=== PATIENT | female | born 1985 | race Two or more races ===

== ENCOUNTER 2016-06-24 17:32 | Emergency (ER) | payer MEDICAID | END 2016-06-24 18:30 | disposition left against medical advice (07) | LOC: ER 17:32 | DX: Z53.9 Procedure and treatment not carried out, unspecified reason (principal); R11.10 Vomiting, unspecified; R19.7 Diarrhea, unspecified; R10.9 Unspecified abdominal pain ==

== ENCOUNTER 2018-06-25 21:16 | Emergency (ER) | payer MEDICAID | END 2018-06-25 21:31 | disposition left against medical advice (07) | LOC: ER 21:16 | DX: Z53.21 Procedure and treatment not carried out due to patient leaving prior to being seen by health care provider (principal) ==

== ENCOUNTER 2019-02-17 08:46 | Emergency (ER) | payer SELFPAY ==
--- NOTE | 2019-02-17 09:36 | ER Document Report ---
ED General - General Chief Complaint: Post Surgical Pain Stated Complaint: POST OP PROBLEM Time Seen by Provider: 02/17/19 09:00 Primary Care Provider: [facility] [Provider Group] - Follow up as needed NEHA HERRING MD [ACTIVE STAFF] - Follow up as needed PHOEBE SHETH MD [Primary Care Provider] - Follow up as needed Notes: Patient is a 34-year-old female presents to the emergency department with a chief complaint of postop complication. Patient reports 35 days ago she had a tummy tuck in [place]. Patient reports she did have drains placed which were removed 10 days postop. Patient reports that she has visited her doctor in [place] multiple times to have blood removed from underneath her surgical incision. Patient reports last time this occurred was Wednesday. Patient reports she flew back to the [place] on Wednesday. Patient reports she did start taking Cefixime 300 mg PO daily last Wednesday. Patient denies fever. Patient reports she feels like her lower abdominal area is swelling again and that she needs to have the blood removed. Patient denies nausea, vomiting or diarrhea. Patient reports her last bowel movement was today and normal. Patient denies pain. TRAVEL OUTSIDE OF THE [place] IN LAST 30 DAYS: Yes COUNTRY TRAVELED TO/FROM: [place] - Related Data Allergies/Adverse Reactions: No Known Allergies Allergy (Verified 09/28/15 17:29) Past Medical History - General Information source: Patient - Social History Smoking Status: Never Smoker Chew tobacco use (# tins/day): No Frequency of alcohol use: None Drug Abuse: None Lives with: Family Family History: Reviewed & Not Pertinent Patient has suicidal ideation: No Patient has homicidal ideation: No - Past Medical History Cardiac Medical History: Reports: None Denies: Hx Coronary Artery Disease, Hx Heart Attack, Hx Hypertension Pulmonary Medical History: Reports: None Denies: Hx Asthma, Hx Bronchitis, Hx COPD, Hx Pneumonia EENT Medical History: Reports: None Neurological Medical History: Reports: None. Denies: Hx Cerebrovascular Accident, Hx Seizures Endocrine Medical History: Reports: None Renal/ Medical History: Reports: None. Denies: Hx Peritoneal Dialysis Malignancy Medical History: Reports: None GI Medical History: Reports: None Musculoskeletal Medical History: Reports None, Denies Hx Arthritis Skin Medical History: Reports None Psychiatric Medical History: Reports: None Traumatic Medical History: Reports: None Infectious Medical History: Reports: None Past Surgical History: Reports: Hx Section - x 3, Hx Cholecystectomy, Hx Tonsillectomy, Other - "Tummy Tuck" 2019 - Immunizations Immunizations up to date: Yes Hx Diphtheria, Pertussis, Tetanus Vaccination: Yes Hx Pneumococcal Vaccination: 05/24/11 Review of Systems - Review of Systems Constitutional: No symptoms reported EENT: No symptoms reported Cardiovascular: No symptoms reported Respiratory: No symptoms reported Gastrointestinal: See HPI Genitourinary: No symptoms reported Female Genitourinary: No symptoms reported Musculoskeletal: No symptoms reported Skin: No symptoms reported Hematologic/Lymphatic: No symptoms reported Neurological/Psychological: No symptoms reported Physical Exam - Vital signs Vitals: Temp Pulse Resp BP Pulse Ox 98.0 F 73 18 122/67 97 02/17/19 08:50 02/17/19 08:50 02/17/19 08:50 02/17/19 08:50 02/17/19 08:50 Interpretation: Normal - Notes Notes: GENERAL: Well-appearing, well-nourished and in no acute distress. HEAD: Atraumatic, normocephalic. EYES: Pupils equal round and reactive to light, extraocular movements intact, sclera anicteric, conjunctiva are normal. ENT: Nares patent, oropharynx clear without exudates. Moist mucous membranes. NECK: Normal range of motion, supple without lymphadenopathy or JVD. LUNGS: Breath sounds clear to auscultation bilaterally and equal. No wheezes rales or rhonchi. HEART: Regular rate and rhythm without murmurs, rubs or gallops. ABDOMEN: Obese, healing surgical scar noted to lower abdomen which is linear in nature - no dehiscence, normoactive bowel sounds. No guarding, no rebound. No masses appreciated. Lower abdomen is firm to touch, there is no fluctuance, no surrounding cellulitis and no drainage. BACK: No cervical, thoracic, lumbar midline tenderness. No saddle anesthesia, normal distal neurovascular exam. GENITOURINARY: Deferred. EXTREMITIES: Normal range of motion, no pitting or edema. No clubbing or cyanosis. NEUROLOGICAL: Cranial nerves II through XII grossly intact. Normal speech, normal gait. PSYCH: Normal mood, normal affect. SKIN: Warm, Dry, normal turgor, no rashes or lesions noted. Course - Re-evaluation Re-evalutation: 02/17/19 09:36 Obtain basic labs as well as a CT of the abdomen with IV contrast to evaluate possible hematoma or seroma underneath the surgical scar. I did explain this to the patient who is in agreement of this plan. Patient is not tachycardic, hypotensive, febrile at this time. 02/17/19 11:23 I did discuss the lab results as well as the CT results with the patient. I did inform her I would like to consult surgery regarding the possible seroma or hematoma underneath the surgical site. Patient denies pain and is requesting something to eat. Patient's abdomen remains unremarkable as there is no guarding, tenderness with palpation, erythema or edema. I did speak with Dr. Keene who is our on-call surgical is to we will come to the emergency department for patient evaluation. 02/17/19 13:00 Dr. Keene at the bedside. The Nepali [employer] aluminum can collector was used for interpretation. He does recommend that the patient follow-up with plastic surgery, such as a Dr. Herring. Patient reports her primary care physician is the [facility] as she does not have health insurance. I will place a referral for case management to see if they are able to help assist the patient for follow up. Dr. Keene did speak with the radiologist who agrees to perform a percutaneous drainage of the wound under ultrasound. I did speak with the patient regarding this and she agrees and is happy that we are able to help her today. I did inform the patient she still needs strict follow-up as she may require additional drainage. Patient verbalizes understanding. I did also inform the patient that she has a large 7 cm cyst near the left adnexa. Patient states she was told that by her doctor and [place] that she does have a large cyst and that she is aware of this. I did inform the patient that if she were to develop pain or worsening symptoms she would need to return immediately as this can cause serious and potentially life threatening issues. I did inform her that a repeat ultrasound within the next 6 to 8 weeks as recommended by the radiologist. 02/17/19 14:57 Patient has returned from ultrasound. Patient reports feeling much better and currently not having abdominal pain. Patient's abdomen is soft and nontender. I did inform the patient to follow-up with [facility] as she does need follow-up for her surgery. Patient was given strict return precautions. Also re-iterated to the patient to follow-up in regards to her cyst. Luther with case management has been contacted by nursing staff to potentially assist patient with plastic surgery follow-up. 02/17/19 15:26 I did speak with Luther the shoe caser who will follow up with the patient on Wednesday and make her a follow-up appointment at [facility]. Patient is aware that she will be contacted. - Vital Signs Vital signs: Temp Pulse Resp BP Pulse Ox 98.0 F 73 14 107/65 100 02/17/19 08:50 02/17/19 08:50 02/17/19 15:16 02/17/19 15:16 02/17/19 15:16 - Laboratory Result Diagrams: 02/17/19 09:35 02/17/19 09:35 Laboratory results interpreted by me: 02/17/19 02/17/19 09:35 10:00 Hgb 11.3 L Hct 35.4 L MCH 25.3 L MCHC 31.8 L RDW 16.8 H Urine Blood MODERATE H - Diagnostic Test Radiology reviewed: Reports reviewed Radiology results interpreted by me: 02/17/19 11:22 Abdomen/Pelvis CT 02/17/19 09:31 IMPRESSION: 1. There are postoperative findings about the lower abdomen in keeping with reported recent abdominoplasty. There is a U shaped subcutaneous fluid collection superficial to the abdominal wall musculature measuring at least 24.0 by 8.7 x 3.7 cm (series 3, image 58, series 602, image 37). This may reflect hematoma or seroma depending upon recency of surgery. The presence or absence of infection cannot be evaluated in this circumstance. This collection may be aspirated under ultrasound if desired. 2. There is a 7.1 cm cyst of the left adnexa. This is likely benign and functional in reproductive age setting, however given size recommend follow-up ultrasound in 6 to 8 weeks. This large cyst may be symptomatic and may serve as a nidus of torsion, and immediate ultrasound may be appropriate depending upon the presence of referral symptoms. Discharge - Discharge Clinical Impression: Post-operative complication Qualifiers: Surgical complication system/body Area: skin Surgical complication type: unspecified Procedure type: dermatologic Qualified Code(s): L76.82 - Other postprocedural complications of skin and subcutaneous tissue Condition: Stable Disposition: HOME, SELF-CARE Additional Instructions: Today you are seen in the emergency department for a possible collection of blood or fluid underneath the skin around the surgical site. We did obtain a cat scan which did verify a collection of fluid. Due to your unremarkable lab findings -and normal vital signs there does not appear to be an acute infection at this time. Please continue your oral antibiotics as previously discussed with Dr. Keene (our surgeon) as prescribed by your surgeon in [place]. You are surgical site was drained by our radiologist. You do need to have a follow-up with [facility] as you may require further management of your abdominal surgery. If you develop any new or worsening symptoms to include severe abdominal pain, redness around her surgical site, drainage around her surgical site, fever, swelling to the abdomen please return to the emergency department immediately. It was also noted on your CAT scan that you had a large 7.1 cm cyst on the left side. The radiologist did recommend follow-up with an STACK SUPERVISOR within the next 6 to 8 weeks to have this reevaluated as it is quite large. Referrals: PHOEBE SHETH MD [Primary Care Provider] - Follow up as needed NEHA HERRING MD [ACTIVE STAFF] - Follow up as needed [facility] [Provider Group] - Follow up as needed
[2019-02-17 10:01] LABS: ABSOLUTE EOSINOPHILS # (AUTO) 0.1 10^3/uL (0.0-0.6); ABSOLUTE LYMPHOCYTES (AUTO) 1.9 10^3/uL (0.5-4.7); ABSOLUTE MONOCYTES (AUTO) 0.4 10^3/uL (0.1-1.4); ABSOLUTE NEUT (AUTO) 3.6 10^3/uL (1.7-8.2); BASOPHILS % (AUTO) 0.3 % (0-2); EOSINOPHILS % (AUTO) 2.4 % (0-6); HEMATOCRIT 35.4 % (36.0-47.0); HEMOGLOBIN 11.3 g/dL (12.0-15.5); LYMPHOCYTES % (AUTO) 31.6 % (13-45); MEAN CORPUSCULAR HEMOGLOBIN 25.3 pg (27.0-33.4); MEAN CORPUSCULAR HGB CONC 31.8 g/dL (32.0-36.0); MEAN CORPUSCULAR VOLUME 80 fl (80-97); MONOCYTES % (AUTO) 7.2 % (3-13); PLATELET COUNT 259 10^3/uL (150-450); RED BLOOD COUNT 4.45 10^6/uL (3.72-5.28); RED CELL DISTRIBUTION WIDTH 16.8 % (11.5-14.0); SEGMENTED NEUTROPHILS % (AUTO) 58.5 % (42-78); TOTAL CELLS COUNTED % (AUTO) 100 %; WHITE BLOOD COUNT 6.1 10^3/uL (4.0-10.5)
[2019-02-17 10:23] LABS: APPEARANCE,URINE CLEAR; BILIRUBIN,URINE NEGATIVE (NEGATIVE); COLOR,URINE YELLOW; GLUCOSE, URINE NEGATIVE (NEGATIVE); KETONES,URINE NEGATIVE (NEGATIVE); LEUKOCYTE ESTERASE,URINE NEGATIVE (NEGATIVE); NITRITE,URINE NEGATIVE (NEGATIVE); PROTEIN,URINE NEGATIVE (NEGATIVE); URINE SPECIFIC GRAVITY 1.013; UROBILINOGEN,URINE NEGATIVE mg/dL (<2.0)
--- NOTE | 2019-02-17 11:05 | RADIOLOGY REPORT (SQ) ---
EXAM DESCRIPTION: CT ABD/PELVIS WITH IV ONLY COMPLETED DATE/TIME: 02/17/2019 10:42 am REASON FOR STUDY: post op lower abdominal swelling/tenderness Recent tummy tuck COMPARISON: 08/06/2014 TECHNIQUE: CT scan of the abdomen and pelvis performed using helical scanning technique with dynamic intravenous contrast injection. No oral contrast. Images reviewed with lung, soft tissue, and bone windows. Reconstructed coronal and sagittal MPR images reviewed. Delayed images for evaluation of the urinary system also acquired. All images stored on PACS. All CT scanners at this facility use dose modulation, iterative reconstruction, and/or weight based d osing when appropriate to reduce radiation dose to as low as reasonably achievable (ALARA). [facility]: Dose Right [facility]: CareDose [facility]: Dose Right [facility]: Teradose 4D [facility]: Guess Your Songs CONTRAST TYPE AND DOSE: contrast/concentration: Isovue 350.00 mg/ml; Total Contrast Delivered: 100.0 ml; Total Saline Delivered: 60.1 ml RENAL FUNCTION: None required. The patient is less than 50 years old. RADIATION DOSE: CT Rad equipment meets quality standard of care and radiation dose reduction techniq ues were employed. CTDIvol: 15.6 - 19.2 mGy. DLP: 1801 mGy-cm.. LIMITATIONS: None. FINDINGS: LOWER CHEST: No significant findings. No nodules or infiltrates. LIVER: Normal size. No masses. No dilated ducts. SPLEEN: Normal size. No focal lesions. PANCREAS: No masses. No significant calcifications. No adjacent inflammation or peripancreatic fluid collections. Pancreatic duct not dilated. GALLBLADDER: Surgically absent. ADRENAL GLANDS: No significant masses or asymmetry. RIGHT KIDNEY AND URETER: No solid masses. No significant calcifications. No hydronephrosis or hyd roureter. LEFT KIDNEY AND URETER: No solid masses. No significant calcifications. No hydronephrosis or hydr oureter. AORTA AND VESSELS: No aneurysm. No dissection. Renal arteries, SMA, celiac without stenosis. RETROPERITONEUM: No retroperitoneal adenopathy, hemorrhage or masses. BOWEL AND PERITONEAL CAVITY: No masses or inflammatory changes. No free fluid or peritoneal masses. APPENDIX: Normal. PELVIS: There is a 7.1 cm cyst of the left adnexa. No free fluid. Normal bladder. ABDOMINAL WALL: There are postoperative findings about the lower abdomen in keeping with reported rec ent abdominoplasty. There is a U shaped subcutaneous fluid collection superficial to the abdominal w all musculature measuring at least 24.0 by 8.7 x 3.7 cm (series 3, image 58, series 602, image 37). BONES: No significant or acute findings. OTHER: No other significant finding. IMPRESSION: 1. There are postoperative findings about the lower abdomen in keeping with reported rec ent abdominoplasty. There is a U shaped subcutaneous fluid collection superficial to the abdominal w all musculature measuring at least 24.0 by 8.7 x 3.7 cm (series 3, image 58, series 602, image 37). This may reflect hematoma or seroma depending upon recency of surgery. The presence or absence of in fection cannot be evaluated in this circumstance. This collection may be aspirated under ultrasound if desired. 2. There is a 7.1 cm cyst of the left adnexa. This is likely benign and functional in reproductive a ge setting, however given size recommend follow-up ultrasound in 6 to 8 weeks. This large cyst may b e symptomatic and may serve as a nidus of torsion, and immediate ultrasound may be appropriate depend ing upon the presence of referral symptoms. TECHNICAL DOCUMENTATION: JOB ID: [id number] Quality ID # [id number]: Final reports with documentation of one or more dose reduction techniques (e.g., Au tomated exposure control, adjustment of the mA and/or kV according to patient size, use of iterative reconstruction technique) 2010 [employer]- All Rights Reserved Reading location - IP/workstation name: [email or web address]
[2019-02-17 11:09] LABS: ALBUMIN 4.2 g/dL (3.5-5.0); ALKALINE PHOSPHATASE 61 U/L (38-126); ANION GAP 9 (5-19); ASPARTATE AMINO TRANSFERASE 21 U/L (14-36); BILIRUBIN,DIRECT 0.1 mg/dL (0.0-0.4); BILIRUBIN,TOTAL 0.4 mg/dL (0.2-1.3); BLOOD UREA NITROGEN 7 mg/dL (7-20); CALCIUM 9.4 mg/dL (8.4-10.2); CARBON DIOXIDE 25 mmol/L (22-30); CHLORIDE 105 mmol/L (98-107); GLUCOSE 95 mg/dL (75-110); POTASSIUM 4.3 mmol/L (3.6-5.0); TOTAL PROTEIN 7.3 g/dL (6.3-8.2)
--- NOTE | 2019-02-17 13:15 | PDOC CONSULTATION ---
Consultation Consult Date: 02/17/19 Provider Consulted: ADITI ESCOTO Consult reason:: Postoperative collection in the subcutaneous area of blood/seroma after tummy tuck surgery History of Present Illness Admission Date/PCP: PHOEBE SHETH MD History of Present Illness: HORACIO BURCIAGA is a 34 year old female who underwent tummy tuck surgery about 36 days ago in [place]. Patient developed postoperative hematoma and was aspirated percutaneously about 5 times about 20 days after his surgery. She was given a prescription for antibiotic after apparently the last aspiration and told her to go to any doctor in the [place] to aspirate and hematoma. She denies any fever or chills or any significant pains. Past Medical History Cardiac Medical History: Reports: None Denies: Coronary Artery Disease, Myocardial Infarction, Hypertension Pulmonary Medical History: Reports: None Denies: Asthma, Bronchitis, Chronic Obstructive Pulmonary Disease (COPD), Pneumonia EENT Medical History: Reports: None Neurological Medical History: Reports: None Denies: Seizures Endocrine Medical History: Reports: None Renal/ Medical History: Reports: None Malignancy Medical History: Reports: None GI Medical History: Reports: None Musculoskeltal Medical History: Reports: None Denies: Arthritis Skin Medical History: Reports: None Psychiatric Medical History: Reports: None Traumatic Medical History: Reports: None Hematology: Denies: Anemia Infectious Medical History: Reports: None Past Surgical History Past Surgical History: Reports: Section - x 3, Cholecystectomy, Tonsillectomy, Other - "Tummy Tuck" 2019 Social History Lives with: Family Smoking Status: Never Smoker Family History Family History: Reviewed & Not Pertinent Parental Family History Reviewed: Yes Children Family History Reviewed: No Sibling(s) Family History Reviewed.: No Medication/Allergy Home Medications: Acyclovir [Acyclovir 400 mg Tablet] 400 mg PO 5XD #25 tablet 01/21/15 Nitrofurantoin/Nitrofuran Mac [Macrobid 100 mg Capsule] 100 mg PO BID #10 capsule 05/08/15 Vit/Iron Fum/Folic AC [ Tablet] 1 each PO DAILY #90 tablet 05/26/15 Ondansetron [Zofran Odt 4 mg Tablet] 1 - 2 tab PO Q4H #30 tab.rapdis 09/28/15 Allergies/Adverse Reactions: No Known Allergies Allergy (Verified 09/28/15 17:29) Review of Systems Constitutional: PRESENT: as per HPI Gastrointestinal: PRESENT: other - Has some swelling that is firm just underneath the tummy tuck incision in the mid part of the abdomen. There is no obvious area that can be drained percutaneously without help of the ultrasound Physical Exam Vital Signs: Temp Pulse Resp BP Pulse Ox 98.0 F 73 18 122/67 97 02/17/19 08:50 02/17/19 08:50 02/17/19 08:50 02/17/19 08:50 02/17/19 08:50 Intake & Output 02/16/19 02/17/19 02/18/19 06:59 06:59 06:59 Weight 97.2 kg General appearance: PRESENT: no acute distress Exam: The abdomen showed a fair nontender swelling below the tummy tuck incision close to the midline. This was not tender and there is no obvious suggestion for any infection Results Laboratory Results: 02/17/19 09:35 02/17/19 09:35 02/17/19 02/17/19 02/17/19 09:35 09:35 09:35 WBC 6.1 RBC 4.45 Hgb 11.3 L Hct 35.4 L MCV 80 MCH 25.3 L MCHC 31.8 L RDW 16.8 H Plt Count 259 Seg Neutrophils % 58.5 Sodium 138.8 Potassium 4.3 Chloride 105 Carbon Dioxide 25 Anion Gap 9 BUN 7 Creatinine 0.54 Est GFR ( Amer) > 60 Glucose 95 Calcium 9.4 Total Bilirubin 0.4 AST 21 Alkaline Phosphatase 61 Total Protein 7.3 Albumin 4.2 Serum HCG, Qual NEGATIVE Urine Color Urine Appearance Urine pH Ur Specific [place] Urine Protein Urine Glucose (UA) Urine Ketones Urine Blood Urine Nitrite Ur Leukocyte Esterase Urine WBC (Auto) Urine RBC (Auto) 02/17/19 10:00 WBC RBC Hgb Hct MCV MCH MCHC RDW Plt Count Seg Neutrophils % Sodium Potassium Chloride Carbon Dioxide Anion Gap BUN Creatinine Est GFR ( Amer) Glucose Calcium Total Bilirubin AST Alkaline Phosphatase Total Protein Albumin Serum HCG, Qual Urine Color YELLOW Urine Appearance CLEAR Urine pH 5.0 Ur Specific [place] 1.013 Urine Protein NEGATIVE Urine Glucose (UA) NEGATIVE Urine Ketones NEGATIVE Urine Blood MODERATE H Urine Nitrite NEGATIVE Ur Leukocyte Esterase NEGATIVE Urine WBC (Auto) 1 Urine RBC (Auto) 1 Impressions: Abdomen/Pelvis CT 02/17/19 09:31 IMPRESSION: 1. There are postoperative findings about the lower abdomen in keeping with reported recent abdominoplasty. There is a U shaped subcutaneous fluid collection superficial to the abdominal wall musculature measuring at least 24.0 by 8.7 x 3.7 cm (series 3, image 58, series 602, image 37). This may reflect hematoma or seroma depending upon recency of surgery. The presence or absence of infection cannot be evaluated in this circumstance. This collection may be aspirated under ultrasound if desired. 2. There is a 7.1 cm cyst of the left adnexa. This is likely benign and functional in reproductive age setting, however given size recommend follow-up ultrasound in 6 to 8 weeks. This large cyst may be symptomatic and may serve as a nidus of torsion, and immediate ultrasound may be appropriate depending upon the presence of referral symptoms. Assessment & Plan - Diagnosis (1) hematoma/seroma post op Is this a current diagnosis for this admission?: Yes (2) Post-operative complication Qualifiers: Surgical complication system/body Area: skin Surgical complication type: unspecified Procedure type: dermatologic Qualified Code(s): L76.82 - Other postprocedural complications of skin and subcutaneous tissue Is this a current diagnosis for this admission?: Yes - Time Time Spent: 30 to 50 Minutes - Plan Summary Plan Summary: CT scan showed collection either hematoma versus seroma on the subcutaneous area in the pelvic site. I have talked to radiologist about aspirating this percutaneously under ultrasound guidance. Just called the ER doctor to send a request for consultation with the radiologist for drainage and also send the drainage for culture. This decision was made after initially talking to the patient and referring her to a plastic surgeon. She might still will need to be seen seen by a plastic surgeon for further follow-up.
--- NOTE | 2019-02-17 15:26 | RADIOLOGY REPORT (SQ) ---
EXAM DESCRIPTION: U/S DRAINAGE RETRO/PERITONEAL COMPLETED DATE/TIME: 02/17/2019 3:06 pm REASON FOR STUDY: collection of fluid underneath surgical site COMPARISON: CT abdomen and pelvis 02/17/2019 TECHNIQUE: Ultrasound-guided right lower quadrant and left lower quadrant anterior abdominal wall fl uid collection aspirations under ultrasound guidance. Specimens were sent to the lab for culture. LIMITATIONS: None. FINDINGS: Prior CT was reviewed. Informed consent was obtained from the patient. After preliminary ultrasound scanning over the tummy tuck incision, and localization of the right low er quadrant and left lower quadrant anterior abdominal wall fluid collections ventral to the rectus m uscle sheath seen on CT exam 02/17/2019, skin entry sites were marked on [facility] skin for drainage of of t hese fluid collections. After sterile skin prep with ChloraPrep and local lidocaine for skin and soft tissue anesthesia, a 5 [place] Accustick catheter was placed into the left lower quadrant anterior abdominal wall fluid colle ction. 150 mL of liquified hematoma was aspirated. Sample was sent to the lab for culture. After a spiration, ultrasound over the area demonstrated no residual fluid collection. The catheter was yovany annette. Band-Aid placed on the skin. After sterile skin prep with ChloraPrep and local lidocaine for skin and soft tissue anesthesia, a 5 [place] Accustick catheter was placed into the right lower quadrant anterior abdominal wall fluid bryson ection. 50 mL of liquified hematoma was aspirated. After aspiration, ultrasound over the area demon strated no residual fluid collection. The catheter was removed. Band-Aid placed on the skin. There were no postprocedure complications. Findings discussed with Dr. Keene. IMPRESSION: Ultrasound-guided aspiration of liquified hematomas along the anterior abdominal wall tu mmy tuck. Specimen sent to the lab for culture. Culture is pending. No immediate complications pos t procedure. TECHNICAL DOCUMENTATION: JOB ID: [id number] [employer]- All Rights Reserved Reading location - IP/workstation name: [email or web address]
[2019-02-17 15:34] VITALS: BP 112/67
== END 2019-02-17 15:30 | disposition home or self-care (01) ==
LOC: ER 08:46
DX: L76.82 Other postprocedural complications of skin and subcutaneous tissue (principal); G89.18 Other acute postprocedural pain; R10.30 Lower abdominal pain, unspecified; N94.89 Other specified conditions associated with female genital organs and menstrual cycle; Z90.49 Acquired absence of other specified parts of digestive tract
CPT/HCPCS: 36415; 49406; 74177; 80053; 81001; 84703; 85025; 87070; 87075; 87205; 99284

== ENCOUNTER 2019-04-13 08:47 | Emergency (ER) | payer MEDICAID ==
--- NOTE | 2019-04-13 09:24 | ER Document Report ---
ED Medical Screen (RME) - General Chief Complaint: Abdominal Pain Stated Complaint: ABDOMINAL PAIN Time Seen by Provider: 04/13/19 09:20 Primary Care Provider: PHOEBE SHETH MD [Primary Care Provider] - Follow up as needed TRAVEL OUTSIDE OF THE [place] IN LAST 30 DAYS: No COUNTRY TRAVELED TO/FROM: [place] - [facility] Notes: 04/13/19 09:27 34 year old female to the ED with C/O lower abdominal pain to [facility]. She had this done 3 months ago in [place]. She states she has had pain in the area since the surgery and in January she had a hematoma drained. States that she has been seen at [facility] and when her pain returned this month, they sent her for an US. US from [facility] shows seroma that is 1 [id number] cm. She denies fevers, chills, NVD. She last ate last night. I performed a brief medical screening exam on this patient. I have placed initial lab orders to help expedite her care. Will have her further evaluated and managed my mainside provider. - Related Data Allergies/Adverse Reactions: No Known Allergies Allergy (Verified 04/13/19 09:05) Past Medical History - Social History Chew tobacco use (# tins/day): No Frequency of alcohol use: None Drug Abuse: None - Past Medical History Cardiac Medical History: Denies: Hx Coronary Artery Disease, Hx Heart Attack, Hx Hypertension Pulmonary Medical History: Denies: Hx Asthma, Hx Bronchitis, Hx COPD, Hx Pneumonia Neurological Medical History: Denies: Hx Cerebrovascular Accident, Hx Seizures Renal/ Medical History: Denies: Hx Peritoneal Dialysis Musculoskeltal Medical History: Denies Hx Arthritis Past Surgical History: Reports: Hx Section - x 3, Hx Cholecystectomy, Hx Tonsillectomy, Other - "[facility]" 2019 - Immunizations Immunizations up to date: Yes Hx Diphtheria, Pertussis, Tetanus Vaccination: Yes Physical Exam - Vital signs Vitals: Temp Pulse Resp BP Pulse Ox 98.2 F 67 16 117/71 96 04/13/19 08:53 04/13/19 08:53 04/13/19 08:53 04/13/19 08:53 04/13/19 08:53 Course - Vital Signs Vital signs: Temp Pulse Resp BP Pulse Ox 98.2 F 67 16 117/71 96 04/13/19 08:53 04/13/19 08:53 04/13/19 08:53 04/13/19 08:53 04/13/19 08:53 Doctor's Discharge - Discharge Referrals: PHOEBE SHETH MD [Primary Care Provider] - Follow up as needed
[2019-04-13 10:15] LABS: ABSOLUTE EOSINOPHILS # (AUTO) 0.1 10^3/uL (0.0-0.6); ABSOLUTE LYMPHOCYTES (AUTO) 1.9 10^3/uL (0.5-4.7); ABSOLUTE MONOCYTES (AUTO) 0.3 10^3/uL (0.1-1.4); ABSOLUTE NEUT (AUTO) 4.1 10^3/uL (1.7-8.2); BASOPHILS % (AUTO) 0.2 % (0-2); EOSINOPHILS % (AUTO) 1.2 % (0-6); HEMATOCRIT 40.4 % (36.0-47.0); LYMPHOCYTES % (AUTO) 29.9 % (13-45); MEAN CORPUSCULAR HEMOGLOBIN 24.9 pg (27.0-33.4); MEAN CORPUSCULAR HGB CONC 32.3 g/dL (32.0-36.0); MEAN CORPUSCULAR VOLUME 77 fl (80-97); MONOCYTES % (AUTO) 5.2 % (3-13); PLATELET COUNT 255 10^3/uL (150-450); RED BLOOD COUNT 5.25 10^6/uL (3.72-5.28); RED CELL DISTRIBUTION WIDTH 16.7 % (11.5-14.0); SEGMENTED NEUTROPHILS % (AUTO) 63.5 % (42-78); TOTAL CELLS COUNTED % (AUTO) 100 %; WHITE BLOOD COUNT 6.5 10^3/uL (4.0-10.5)
[2019-04-13 10:35] LABS: ALBUMIN 4.5 g/dL (3.5-5.0); ALKALINE PHOSPHATASE 65 U/L (38-126); ANION GAP 13 (5-19); ASPARTATE AMINO TRANSFERASE 20 U/L (14-36); BILIRUBIN,DIRECT 0.1 mg/dL (0.0-0.4); BILIRUBIN,TOTAL 0.4 mg/dL (0.2-1.3); BLOOD UREA NITROGEN 11 mg/dL (7-20); CALCIUM 9.7 mg/dL (8.4-10.2); CARBON DIOXIDE 21 mmol/L (22-30); CHLORIDE 109 mmol/L (98-107); GLUCOSE 108 mg/dL (75-110); POTASSIUM 4.1 mmol/L (3.6-5.0)
--- NOTE | 2019-04-13 11:38 | ER Document Report ---
ED General - General Chief Complaint: Abdominal Pain Stated Complaint: ABDOMINAL PAIN Time Seen by Provider: 04/13/19 09:20 Primary Care Provider: JENS GASPAR MD [ACTIVE STAFF] - 04/18/19 NEHA LEON MD [ACTIVE STAFF] - Follow up as needed PHOEBE SHETH MD [Primary Care Provider] - Follow up as needed Mode of Arrival: Ambulatory Information source: Patient Notes: 34-year-old female presents after her primary care physician sent her for an ultrasound which showed a seroma anterior to the rectus abdominis. Patient has had prior similar symptoms and underwent a drainage in January [address] Mata. Patient reports that she has had some mild aching pain but denies any fever, chills, nausea, vomiting. She does have an appointment with Dr. Gaspar on April 18. TRAVEL OUTSIDE OF THE [place] IN LAST 30 DAYS: No COUNTRY TRAVELED TO/FROM: [place] - [facility] Onset: Other Onset/Duration: Persistent Quality of pain: Achy Severity: Mild Pain Level: 1 Associated symptoms: denies: Body/muscle aches, Chest pain, Fever, Nausea, Vomiting, Shortness of breath Exacerbated by: Movement Relieved by: Denies Similar symptoms previously: Yes Recently seen / treated by doctor: Yes - Related Data Allergies/Adverse Reactions: No Known Allergies Allergy (Verified 04/13/19 09:05) Past Medical History - General Information source: Patient, Relative - Social History Smoking Status: Never Smoker Chew tobacco use (# tins/day): No Frequency of alcohol use: None Drug Abuse: None Lives with: Family Family History: Reviewed & Not Pertinent Patient has suicidal ideation: No Patient has homicidal ideation: No - Past Medical History Cardiac Medical History: Denies: Hx Coronary Artery Disease, Hx Heart Attack, Hx Hypertension Pulmonary Medical History: Denies: Hx Asthma, Hx Bronchitis, Hx COPD, Hx Pneumonia Neurological Medical History: Denies: Hx Cerebrovascular Accident, Hx Seizures Renal/ Medical History: Denies: Hx Peritoneal Dialysis Musculoskeletal Medical History: Denies Hx Arthritis Past Surgical History: Reports: Hx Abdominal Surgery - tummy tuck, Hx Section - x 3, Hx Cholecystectomy, Hx Tonsillectomy, Other - "Tummy Tuck" 2019 - Immunizations Immunizations up to date: Yes Hx Diphtheria, Pertussis, Tetanus Vaccination: Yes Hx Pneumococcal Vaccination: 05/24/11 Review of Systems - Review of Systems Notes: REVIEW OF SYSTEMS: CONSTITUTIONAL : Denies fever, chills, or sweats. Denies recent illness. Denies weight loss, recent hospitalizations. EENT: Denies visual changes, eye pain. Denies sore throat, oral lesions, difficulty swallowing. CARDIOVASCULAR: Denies chest pain. Denies palpitations. Denies lower extremity edema. RESPIRATORY: Denies cough. Denies shortness of breath, wheezing. GASTROINTESTINAL: Denies abdominal distention. Denies nausea, vomiting, or diarrhea. Denies blood in vomitus, stools, or per rectum. Denies black, tarry stools. Denies constipation. GENITOURINARY: Denies difficulty urinating, painful urination, frequency, blood in urine, or vaginal discharge. MUSCULOSKELETAL: Denies back or neck pain or stiffness. Denies joint pain or swelling. SKIN: Denies rash, lesions or sores. HEMATOLOGIC : Denies easy bruising or bleeding. LYMPHATIC: Denies swollen glands. NEUROLOGICAL: Denies confusion or altered mental status. Denies loss of consciousness. Denies dizziness or lightheadedness. Denies headache. Denies w eakness or paralysis. Denies problems difficulty with ambulation, slurred speech. Denies sensory loss, numbness, or tingling. Denies seizures. PSYCHIATRIC: Denies anxiety or stress. Denies depression, suicidal ideation, or homicidal ideation. Denies visual or auditory hallucinations. Physical Exam - Vital signs Vitals: Temp Pulse Resp BP Pulse Ox 98.2 F 67 16 117/71 96 04/13/19 08:53 04/13/19 08:53 04/13/19 08:53 04/13/19 08:53 04/13/19 08:53 - Notes Notes: PHYSICAL EXAMINATION: GENERAL: Well-appearing, well-nourished and in no acute distress. HEAD: Atraumatic, normocephalic. EYES: Pupils equal round and reactive to light, extraocular movements intact, conjunctiva are normal. ENT: Nares patent, oropharynx clear without exudates. Moist mucous membranes. NECK: Normal range of motion, supple without lymphadenopathy LUNGS: Breath sounds clear to auscultation bilaterally and equal. No wheezes rales or rhonchi. HEART: Regular rate and rhythm without murmurs ABDOMEN: Soft, nontender, nondistended abdomen. No guarding, no rebound. No masses appreciated. Female : deferred Musculoskeletal: Normal range of motion, no pitting or edema. No cyanosis. NEUROLOGICAL: Cranial nerves grossly intact. Normal speech, normal gait. Normal sensory, motor exams PSYCH: Normal mood, normal affect. SKIN: Warm, Dry, normal turgor, no rashes or lesions noted. Course - Re-evaluation Re-evalutation: Laboratory 04/13/19 04/13/19 10:00 10:00 WBC 6.5 RBC 5.25 Hgb 13.0 Hct 40.4 MCV 77 L MCH 24.9 L MCHC 32.3 RDW 16.7 H Plt Count 255 Lymph % (Auto) 29.9 Coffey % (Auto) 5.2 Eos % (Auto) 1.2 Baso % (Auto) 0.2 Absolute Neuts (auto) 4.1 Absolute Lymphs (auto) 1.9 Absolute Monos (auto) 0.3 Absolute Eos (auto) 0.1 Absolute Basos (auto) 0.0 Seg Neutrophils % 63.5 Sodium 143.2 Potassium 4.1 Chloride 109 H Carbon Dioxide 21 L Anion Gap 13 BUN 11 Creatinine 0.57 Est GFR ( Amer) > 60 Est GFR (MDRD) Non-Af > 60 Glucose 108 Calcium 9.7 Total Bilirubin 0.4 Direct Bilirubin 0.1 Neonat Total Bilirubin Not Reportable Neonat Direct Bilirubin Not Reportable Neonat Indirect Bili Not Reportable AST 20 ALT 19 Alkaline Phosphatase 65 Total Protein 8.0 Albumin 4.5 Temp Pulse Resp BP Pulse Ox 98.1 F 74 16 116/78 99 04/13/19 12:06 04/13/19 12:06 04/13/19 12:06 04/13/19 12:06 04/13/19 12:06 04/13/19 12:12 34-year-old female presents with mild abdominal pain. Patient underwent a tummy tuck in [place] and has had recurrent seromas since that time. Previous medical records and nursing notes reviewed. Vital signs reviewed and within normal limits. Patient does not appear toxic or dehydrated. She has a benign abdominal exam without any guarding, rebound, areas of erythema, induration or fluctuance. Ultrasound report reviewed which does show seromas. I spoke to Dr. Keene who is familiar with the patient and advises that I touch base with Dr. Taylor who perform the drainage in January. Cultures from IR drainage were reviewed and showed no growth. Dr. Mata feels that the patient will be better suited with plastic surgery follow-up and does not want to potentially seed the areas with recurrent drainage. Patient does have an upcoming appointm ent with Dr. Gaspar on April 18. Patient also given plastic surgery follow-up. Advised to return if she develops fever, worsening abdominal pain or any other symptoms concerning to her. Patient was evaluated and treated as appropriate for the patient's presenting symptoms and complaint, with consideration of any critical or life threatening conditions that may be associated with their obtained history and exam as noted above. All results were discussed with patient and... Patient provided the opportunity to ask questions, and express concerns. Patient was educated on treatments based on their presumed diagnosis as noted above. At this time we will discharge the patient with return precautions and follow-up recommendations. Verbal discharge instructions given a the bedside. Medication warnings reviewed. Patient is in agreement with this plan and has verbalized understanding of return precautions. After careful consideration I feel that that patient can be safely discharged from the emergency department, they were advised to followup with a primary care physician in 2-3 days. Dictation on this chart was performed using voice recognition software and may result in unintended grammatical, spelling, syntax or errors. - Vital Signs Vital signs: Temp Pulse Resp BP Pulse Ox 98.1 F 74 16 116/78 99 04/13/19 12:06 04/13/19 12:06 04/13/19 12:06 04/13/19 12:06 04/13/19 12:06 - Laboratory Result Diagrams: 04/13/19 10:00 04/13/19 10:00 Laboratory results interpreted by me: 04/13/19 04/13/19 10:00 10:00 MCV 77 L MCH 24.9 L RDW 16.7 H Chloride 109 H Carbon Dioxide 21 L - Diagnostic Test Radiology reviewed: Image reviewed, Reports reviewed Discharge - Discharge Clinical Impression: hematoma/seroma post op Abdominal wall seroma Qualifiers: Encounter type: subsequent encounter Qualified Code(s): S30.1XXD - Contusion of abdominal wall, subsequent encounter Condition: Good Disposition: HOME, SELF-CARE Additional Instructions: You have been seen in the Emergency Department (ED) for abdominal pain. Your evaluation did not identify a clear cause of your symptoms but was generally reassuring. Please follow up with your doctor as soon as possible regarding today's emergent visit and the symptoms that are bothering you. Return to the ED if your abdominal pain worsens or fails to improve, you develop bloody vomiting, bloody diarrhea, you are unable to tolerate fluids due to vomiting, fever greater than 101, or other symptoms that concern you. Prescriptions: Naproxen [Naprosyn] 500 mg PO Q12H 7 Days #14 tablet Referrals: PHOEBE SHETH MD [Primary Care Provider] - Follow up as needed JENS GASPAR MD [ACTIVE STAFF] - 04/18/19 NEHA LEON MD [ACTIVE STAFF] - Follow up as needed
[2019-04-13] MEDS ORDERED: NAPROXEN 250 MG TABLET PO ONE (11:48)
[2019-04-13 12:06] VITALS: BP 116/78
== END 2019-04-13 12:06 | disposition home or self-care (01) ==
LOC: ER 08:47
DX: M96.843 Postprocedural seroma of a musculoskeletal structure following other procedure (principal); Y83.8 Other surgical procedures as the cause of abnormal reaction of the patient, or of later complication, without mention of misadventure at the time of the procedure
CPT/HCPCS: 36415; 85025; 80053; J3490; 99284

== ENCOUNTER 2020-01-15 05:42 | Day surgery (SDC) | payer MEDICAID ==
--- NOTE | 2020-01-10 12:56 | RADIOLOGY REPORT (SQ) ---
EXAM DESCRIPTION: CHEST PA/LATERAL IMAGES COMPLETED DATE/TIME: 01/10/2020 12:22 pm REASON FOR STUDY: PRE-OP COMPARISON: 09/03/2017 EXAM PARAMETERS: NUMBER OF VIEWS: two views TECHNIQUE: Digital Frontal and Lateral radiographic views of the chest acquired. RADIATION DOSE: NA LIMITATIONS: none FINDINGS: LUNGS AND PLEURA: No opacities, masses or pneumothorax. No pleural effusion. MEDIASTINUM AND HILAR STRUCTURES: No masses or contour abnormalities. HEART AND VASCULAR STRUCTURES: Heart normal size. No evidence for failure. BONES: No acute findings. HARDWARE: None in the chest. OTHER: No other significant finding. IMPRESSION: NO SIGNIFICANT RADIOGRAPHIC FINDING IN THE CHEST. TECHNICAL DOCUMENTATION: JOB ID: [id number] 2010 [employer]- All Rights Reserved Reading location - IP/workstation name: [email or web address]
[2020-01-10 13:01] LABS: HEMATOCRIT 40.2 % (36.0-47.0); HEMOGLOBIN 13.1 g/dL (12.0-15.5); MEAN CORPUSCULAR HEMOGLOBIN 26.9 pg (27.0-33.4); MEAN CORPUSCULAR HGB CONC 32.7 g/dL (32.0-36.0); MEAN CORPUSCULAR VOLUME 82 fl (80-97); PLATELET COUNT 248 10^3/uL (150-450); RED BLOOD COUNT 4.88 10^6/uL (3.72-5.28); RED CELL DISTRIBUTION WIDTH 15.1 % (11.5-14.0); WHITE BLOOD COUNT 8.1 10^3/uL (4.0-10.5)
[2020-01-10 13:04] LABS: APPEARANCE,URINE CLEAR; BILIRUBIN,URINE NEGATIVE (NEGATIVE); COLOR,URINE YELLOW; GLUCOSE, URINE NEGATIVE (NEGATIVE); KETONES,URINE NEGATIVE (NEGATIVE); LEUKOCYTE ESTERASE,URINE TRACE (NEGATIVE); NITRITE,URINE NEGATIVE (NEGATIVE); PROTEIN,URINE NEGATIVE (NEGATIVE); URINE SPECIFIC GRAVITY 1.016; UROBILINOGEN,URINE NEGATIVE mg/dL (<2.0)
[2020-01-10 13:22] LABS: ALBUMIN 4.4 g/dL (3.5-5.0); ALKALINE PHOSPHATASE 62 U/L (38-126); ANION GAP 11 (5-19); ASPARTATE AMINO TRANSFERASE 27 U/L (14-36); BILIRUBIN,TOTAL 0.6 mg/dL (0.2-1.3); BLOOD UREA NITROGEN 10 mg/dL (7-20); CALCIUM 9.4 mg/dL (8.4-10.2); CARBON DIOXIDE 25 mmol/L (22-30); CHLORIDE 103 mmol/L (98-107); GLUCOSE 100 mg/dL (75-110); POTASSIUM 4.2 mmol/L (3.6-5.0); TOTAL PROTEIN 7.7 g/dL (6.3-8.2)
--- NOTE | 2020-01-11 09:37 | EKG REPORT ---
SEVERITY:- NORMAL ECG - SINUS RHYTHM : Confirmed by: Armond Ram 11-Jan-2020 09:36:30
[~2020-01-15 05:42] MED LIST: CEFAZOLIN 2 GM/D5W RTU 2 GM/50 ML RTUPB IV ONE; CEFAZOLIN 2 GM/D5W RTU 2 GM/50 ML RTUPB IV PRN; LACTATED RINGERS 1000 ML IV PRN; LIDOCAINE 0.5% INJ-PF (5 MG/ML) 50 ML SDV SUBCUT PRN; RINGERS SOLUTION,LACTATED 1,000 ML IV PRN
[2020-01-15 06:39] VITALS: BP 126/83
[2020-01-15] MEDS ORDERED: LIDOCAINE 2% INJ-PF (20 MG/ML) 10 ML AMPUL ONE (07:02)
[2020-01-15] MEDS ORDERED: MIDAZOLAM 2 MG/2 ML INJ ONE ×2 (07:02→07:18)
[2020-01-15] MEDS ORDERED: FENTANYL CITRATE INJ/PF 100 MCG/2 ML AMPUL ONE (07:02)
[2020-01-15] MEDS ORDERED: SUGAMMADEX SODIUM 200 MG/2 ML SDV IV ONE (07:03)
[2020-01-15] MEDS ORDERED: MORPHINE SULFATE 10 MG/ML INJ ONE (07:03)
[2020-01-15] MEDS ORDERED: PROPOFOL INJ 200 MG/20 ML VIAL IV ONE (07:03)
[2020-01-15] MEDS ORDERED: DEXMEDETOMIDINE INJ 80 MCG/20 ML VIAL IV ONE (07:03)
[2020-01-15] MEDS ORDERED: MIDAZOLAM 2 MG/2 ML INJ IV ONE (07:15)
== END 2020-01-15 07:55 | disposition home or self-care (01) ==
LOC: OROUT 05:42
PROVIDERS: ATTEND Obstetrics & Gynecology Gynecology
DX: G89.29 Other chronic pain (principal); R10.2 Pelvic and perineal pain; N85.8 Other specified noninflammatory disorders of uterus; Z53.9 Procedure and treatment not carried out, unspecified reason; Z03.818 Encounter for observation for suspected exposure to other biological agents ruled out
CPT/HCPCS: 93005; 86900; 86901; 36415 ×2; 86850; 82962; 85027; 87635; 81025; 80053; 81001; 71046; 93010; J2250; J0690; C9803; J2270; J2704; J3010; J3490